=== PATIENT | female | born 1940 | race Caucasian/White ===

== ENCOUNTER 2022-10-30 19:42 | Emergency (ER) | payer MEDICARE, OTHER ==
[~2022-10-30] VITALS: Ht 165.1 cm; Wt 94.8 kg
[2022-10-30] MEDS ORDERED: ACETAMINOPHEN500 MG PO (21:12)
[2022-10-30] MEDS ORDERED: IBUPROFEN200 MG PO (21:12)
== END 2022-10-30 21:35 | disposition home or self-care (01) ==
LOC: FSED 19:47
DX: M54.6 Pain in thoracic spine (principal); S29.012A Strain of muscle and tendon of back wall of thorax, initial encounter; W01.0XXA Fall on same level from slipping, tripping and stumbling without subsequent striking against object, initial encounter; Y93.01 Activity, walking, marching and hiking; Y92.89 Other specified places as the place of occurrence of the external cause; K57.90 Diverticulosis of intestine, part unspecified, without perforation or abscess without bleeding
CPT/HCPCS: 74176; 99283

== ENCOUNTER 2023-02-13 15:00 | Emergency (ER) | payer MEDICARE ==
[~2023-02-13] VITALS: Ht 167.6 cm; Wt 92.6 kg
[~2023-02-13 15:00] MED LIST: ACETAMINOPHEN500 MG PO; IBUPROFEN200 MG PO
[2023-02-13] MEDS ORDERED: LISINOPRIL10 MG PO (15:37)
[2023-02-13] MEDS ORDERED: OMEPRAZOLE40 MG PO (15:37)
[2023-02-13] MEDS ORDERED: VITAMIN E268 M1 (15:37)
[2023-02-13] MEDS ORDERED: OXYBUTYNIN CHLOR5 M1 PO (15:37)
[2023-02-13] MEDS ORDERED: FUROSEMIDE20 MG (15:37)
[2023-02-13] MEDS ORDERED: ASPIRIN EC81 MG PO (15:37)
[2023-02-13] MEDS ORDERED: PROZAC20 MG PO (15:37)
[2023-02-13] MEDS ORDERED: VITAMIN D350 MCG (15:37)
[2023-02-13] MEDS ORDERED: ZITHROMAX250 MG PO (16:12)
[2023-02-13 16:30] VITALS: O2SAT 97
== END 2023-02-13 16:30 | disposition home or self-care (01) ==
LOC: FSED 15:08
DX: H01.001 Unspecified blepharitis right upper eyelid (principal); J06.9 Acute upper respiratory infection, unspecified; K21.9 Gastro-esophageal reflux disease without esophagitis; I10 Essential (primary) hypertension; I25.10 Atherosclerotic heart disease of native coronary artery without angina pectoris; F32.A Depression, unspecified; Z88.0 Allergy status to penicillin; Z88.2 Allergy status to sulfonamides; Z79.82 Long term (current) use of aspirin; Z79.899 Other long term (current) drug therapy; Z95.0 Presence of cardiac pacemaker
CPT/HCPCS: 99283

== ENCOUNTER 2024-08-20 16:00 | Emergency (ER) | payer MEDICARE ==
[~2024-08-20] VITALS: Ht 167.6 cm; Wt 95.0 kg
[~2024-08-20 16:00] MED LIST changes: +ASPIRIN EC81 MG PO; +FUROSEMIDE20 MG; +LISINOPRIL10 MG PO; +OMEPRAZOLE40 MG PO; +OXYBUTYNIN CHLOR5 M1 PO; +PROZAC20 MG PO; +VITAMIN D350 MCG; +VITAMIN E268 M1; +ZITHROMAX250 MG PO
[2024-08-20 16:45] VITALS: PULSE 88; RESP 18; TEMP 97.4
[2024-08-20] MEDS ORDERED: CLOPIDOGREL75 MG PO (17:09)
[2024-08-20] MEDS ORDERED: SPIRONOLACTONE25 MG PO (17:09)
[2024-08-20] MEDS ORDERED: METOPROLOL SUCC25 MG PO (17:09)
[2024-08-20] MEDS ORDERED: ALLEGRA-D 24 H1 EACH PO (17:09)
[2024-08-20] MEDS ORDERED: NEURONTIN100 MG PO (17:09)
[2024-08-20] MEDS ORDERED: PEPCID20 MG PO (17:09)
[2024-08-20] MEDS: FAMOTIDINE 20 MG/2 ML VIAL IV ONE (17:27)
[2024-08-20] MEDS: ONDANSETRON HCL INJ 2MG/ML 2ML 2 MG/ML VIAL IV ONE (17:28)
[2024-08-20] MEDS: SODIUM CHLORIDE 0.9% 500ML 500 ML IV STA (17:28)
[2024-08-20] MEDS: LEVOFLOXACIN 500 MG TAB PO ONE (17:54)
[2024-08-20] MEDS ORDERED: PROMETHAZINE12.5 M1 PO (18:13)
[2024-08-20 18:57] VITALS: BP 137/55; PULSE 90; RESP 18; TEMP 97.3; O2SAT 96
== END 2024-08-20 18:58 | disposition home or self-care (01) ==
LOC: FSED 16:03
DX: R05.9 Cough, unspecified (principal); J18.9 Pneumonia, unspecified organism; J06.9 Acute upper respiratory infection, unspecified; R11.2 Nausea with vomiting, unspecified; E86.0 Dehydration; I10 Essential (primary) hypertension; I25.10 Atherosclerotic heart disease of native coronary artery without angina pectoris; E78.5 Hyperlipidemia, unspecified; G47.33 Obstructive sleep apnea (adult) (pediatric); K21.9 Gastro-esophageal reflux disease without esophagitis; F32.A Depression, unspecified; Z95.810 Presence of automatic (implantable) cardiac defibrillator; Z96.653 Presence of artificial knee joint, bilateral
CPT/HCPCS: 71250; 74176; 99283; J2405; J7040

== ENCOUNTER 2025-04-21 19:30 | Emergency (ER) | payer MEDICARE ==
[~2025-04-21] VITALS: Ht 167.6 cm; Wt 98.4 kg
[~2025-04-21 19:30] MED LIST changes: +ALLEGRA-D 24 H1 EACH PO; +CLOPIDOGREL75 MG PO; +METOPROLOL SUCC25 MG PO; +NEURONTIN100 MG PO; +PEPCID20 MG PO; +PROMETHAZINE12.5 M1 PO; +SPIRONOLACTONE25 MG PO
[2025-04-21 20:05] VITALS: PULSE 106; RESP 18; TEMP 99.1
[2025-04-21] MEDS ORDERED: POLYMYXIN B-TMP10 ML OD (21:39)
[2025-04-21 21:57] VITALS: BP 169/77; PULSE 106; RESP 18; TEMP 99.1; O2SAT 95
== END 2025-04-21 21:57 | disposition home or self-care (01) ==
LOC: FSED 19:55
DX: L22 Diaper dermatitis (principal); L13.0 Dermatitis herpetiformis; I10 Essential (primary) hypertension; I50.9 Heart failure, unspecified; I48.91 Unspecified atrial fibrillation; Z96.653 Presence of artificial knee joint, bilateral
CPT/HCPCS: 99282